=== PATIENT | female | born 1960 | race African-American/Black ===

== ENCOUNTER 2019-03-05 01:11 | Emergency (ER) | payer OTHER ==
[2019-03-05] MEDS ORDERED: Acetaminophen 650 MG Suppository ONE (01:38)
[2019-03-05 01:55] LABS: Bilirubin Negative (Negative); Blood, Urine Negative (Negative); Clarity Turbid (Clear); Glucose, Urine (Dipstick) Normal (Negative); Leukocyte Negative Leu/uL (Negative); Nitrite Negative (Negative); Protein, Urine (Dipstick) 30 mg/dL (Neg-Trace); RBC/HPF 0-3 HPF (0-3); WBC/HPF 0-3 HPF (0-3)
[2019-03-05 01:56] LABS: Bacteria/HPF 1+ HPF (None Seen)
[2019-03-05 02:14] LABS: Actual Bicarbonate (HCO3a) 30.4 mEq/L (22-28); Analyzer IN Cardio ER; Base Excess (BEa) 5.5 mEq/L (-2.0 to +3.0); CO2 Tension 46.5 mmHg (35.0-45.0); Carboxyhemoglobin (COHb) 0.7 gm% (0.0-3.0); Hemoglobin (Hb) 8.9 g/dL (12.0-16.0); Potassium - ABG Lab 3.61 mmol/L (3.70-5.30); pH, Arterial 7.43 (7.35-7.45)
[2019-03-05 02:23] LABS: O2 Tension (PaO2) 38.5 mmHg (> 80.0)
[2019-03-05 02:24] LABS: ALV-art Gradient 74.495 (0-20); Puncture Site LRA
[2019-03-05 02:27] LABS: INR-International Normal Ratio 1.2; PTT 27.9 SEC (22.9-36.1); Prothrombin Time 15.5 SEC (12.0-14.7)
[2019-03-05 02:36] LABS: Band 3 % (5-11); Hemoglobin 9.2 g/dL (12.0-16.0); Hypochromia SLIGHT = 6-15 cells (100X) (0-5/hpf); Lymphocytes 1 % (21-51); MDiff Complete? YES; Mean Corpuscular HGB CONC 31.7 g/dL (32.0-36.0); Mean Corpuscular Hemoglobin 29.4 pg (27.0-31.0); Mean Corpuscular Volume 92.6 fL (78.0-98.0); Mean Platelet Volume 8.7 fL (7.4-10.4); Monocytes 7 % (0-10); Neutrophil 89 % (42-75); Platelet Count 74 thou/uL (130-400); Platelet Morphology Comment Appears Decreased; RBC Distribution Width 19.4 % (11.5-14.5); Red Blood Cell (RBC) Count 3.14 mill/uL (4.20-5.40); White Blood Cell (WBC) Count 21.4 thou/uL (4.8-10.8)
[2019-03-05] MEDS ORDERED: Cefepime 2 GM VIAL ONE (02:39)
[2019-03-05 02:42] LABS: ALT (SGPT) 19 U/L (8-55); AST (SGOT) 61 U/L (5-34); Albumin 2.2 g/dL (3.4-4.8); Alkaline Phosphatase 121 U/L (40-110); Anion Gap 19 mmol/L (10-20); BUN (Urea Nitrogen) 36 mg/dL (9.8-20.1); Bilirubin, Total 1.1 mg/dL (0.2-1.2); Calc. Creatinine Clearance 0 mL/min (70-130); Calcium 6.6 mg/dL (7.8-10.44); Carbon Dioxide 28 mmol/L (23-31); Chloride 88 mmol/L (98-107); Estimated GFR-MDRD 31; Globulin 3.5 g/dL (2.4-3.5); Glucose 93 mg/dL (80-115); Potassium 3.7 mmol/L (3.5-5.1); Protein, Total 5.7 g/dL (6.0-8.3); Sodium 131 mmol/L (136-145)
[2019-03-05 02:43] LABS: Acetaminophen Less than 6.0 mcg/mL (10.0-30.0); Alcohol Less than 10 mg/dL (Less than 10); Salicylate Less than 8.0 mg/dL (15.0-30.0)
[2019-03-05 05:26] LABS: Lactic Acid 3.4 mmol/L (0.5-2.2)
--- NOTE | 2019-03-05 07:11 | RAD ---
RADIOGRAPH CHEST 1 VIEW: DATE: 03/05/2019 HISTORY: 59-year-old female with altered mental status, hypertension, CHF, and CVA. Concern for aspiration. FINDINGS: There is cardiomegaly. There is no evidence of airspace density, pulmonary edema, or pneumothorax. Th e lateral costophrenic angles are not effaced. IMPRESSION: 1) No acute pulmonary findings. 2) cardiomegaly without congestive heart failure.
--- NOTE | 2019-03-05 07:42 | CT ---
PRELIMINARY REPORT/[facility]/AFTER HOURS PROCEDURE CT HEAD WITHOUT INTRAVENOUS CONTRAST: CLINICAL HISTORY: F59 presents to the ED via EMS with c/o mental status changes onset this morning. Per EMS the pt was found this morning by family A&O x 1. Per EMS the family reports she is usually A&O x 4. EMS reports recent diagnosis of CHF and hx of CVA and HTN. TECHNIQUE: Axial computed tomography images of the head/brain without intravenous contrast. COMPARISON: None provided. FINDINGS: BRAIN: No acute intraparenchymal hemorrhage. No mass lesion. No CT evidence for acute territorial inf arct. No midline shift or extra-axial collection. VENTRICLES: No hydrocephalus. ORBITS: The orbits are unremarkable. SINUSES AND MASTOIDS: The paranasal sinuses and mastoid air cells are clear. SOFT TISSUES: No significant facial or scalp soft tissue swelling evident. No radiopaque foreign body is seen. BONES: No acute skull fracture. Hyperostosis frontalis. IMPRESSION: No acute intracranial abnormality. MRI is most sensitive for detection of acute ischemic stroke. ELECTRONICALLY SIGNED BY: Joey Thomas M.D. Mar 05, 2019 3:17:55 AM BROWN S[employer]ER This report is intended for review by the ordering physician only, in accordance of law. If you recei ve this report in error, please call [facility] at [phone]. FINAL REPORT CT BRAIN NONCONTRAST: 03/05/2019 3:04 a.m. HISTORY: A 59-year-old female with altered mental status. FINDINGS: There is no midline shift or any other mass effect. There is no evidence of acute intracranial hemor rhage, large cortical infarct, obstructive hydrocephalus, or extraaxial fluid collection. The calvar ium is intact. This report agrees with the preliminary report by [facility]. IMPRESSION: No acute intracranial findings. jn [] CODE QA POS: OFF
--- NOTE | 2019-03-05 08:00 | ULT ---
PRELIMINARY REPORT/[facility]/AFTER HOURS PROCEDURE US PELVIS, COMPLETE: CLINICAL HISTORY: Pelvic pain, vaginal bleeding HX: cervical CA TECHNIQUE: Transabdominal pelvic ultrasound (complete) with image documentation. COMPARISON: None provided. FINDINGS: ENDOMETRIUM: Nonvisualized. UTERUS/CERVIX: A large heterogeneous midline pelvic mass appears to arise from the uterus and measure s 22.2 x 12.9 x 13.0 cm. RIGHT OVARY: Nonvisualized. LEFT OVARY: Nonvisualized. FREE FLUID: No free fluid. IMPRESSION: Large midline heterogeneous pelvic mass, probably arising from the uterus. Further evaluation with C T versus MRI is advised. ELECTRONICALLY SIGNED BY: Bennie Atkinson MD Mar 05, 2019 2:25:36 AM SUPERVISOR [employer] This report is intended for review by the ordering physician only, in accordance of law. If you recei ve this report in error, please call [facility] at [phone]. FINAL REPORT ULTRASOUND PELVIS DOPPLER DUPLEX: 03/05/2019 2:11 a.m. HISTORY: A 59-year-old female with vaginal bleeding and pelvic pain. TECHNIQUE: A transabdominal transducer was used to evaluate the intrapelvic contents with huffman-scale, color-flow and spectral analysis. FINDINGS: There is a large solid mass in the pelvis, measuring approximately 25 x 13 x 13 cm with heterogeneous echogenicity. It contains numerous small hyperechoic foci throughout, which corresponds to gas, as d emonstrated on subsequent CT. The ovaries are not visualized. There is blood flow within this large m ass. IMPRESSION: 1. Large intrapelvic mass extending into the abdominal cavity, containing numerous foci of gas. 2. This appears to be a very enlarged uterus, perhaps by malignant neoplasm, and suspected to have askew perimposed infection. CODE QA POS: OFF
--- NOTE | 2019-03-05 08:14 | CT ---
PRELIMINARY REPORT/[facility]/AFTER HOURS PROCEDURE CT ABDOMEN AND PELVIS WITH INTRAVENOUS CONTRAST: CLINICAL HISTORY: F59 presents to the ED via EMS with c/o mental status changes onset this morning. Per EMS the pt was found this morning by family A&O x 1. Per EMS the family reports she is usually A&O x 4. EMS reports recent diagnosis of CHF and hx of CVA and HTN. TECHNIQUE: Axial computed tomography images of the abdomen and pelvis with intravenous contrast. CONTRAST: With 60 mL Isovue-370. COMPARISON: Pelvic ultrasound 03/05/2019. FINDINGS: Limited examination due to poor penetration secondary to body habitus. LUNG BASES: No basilar airspace consolidation or pleural effusion. LIVER: Unremarkable. GALLBLADDER AND BILE DUCTS: Unremarkable. No calcified stone. No ductal dilation. PANCREAS: Unremarkable. SPLEEN: Unremarkable. ADRENAL GLANDS: Unremarkable. KIDNEYS, URETERS, AND BLADDER: Mild left hydronephrosis. No nephrolithiasis. No ureteral or bladder calculi. STOMACH AND BOWEL: Right abdominal wall hernia with herniation of small bowel and mesenteric fat. APPENDIX: No CT evidence for appendicitis. PERITONEUM: Possible small free fluid within the left lower quadrant of the abdomen. LYMPH NODES: No lymphadenopathy. PELVIS: 11.7 x 15.1 x 21.9 cm heterogeneous gas containing mass in the lower pelvis posterior to the urinary bladder and anterior to the rectum favored to be within the uterus and cervix. VASCULATURE: No aortic aneurysm. BONES: No fracture or suspicious osseous abnormality. ABDOMINAL WALL AND SOFT TISSUES: Unremarkable. IMPRESSION: 1. A 21.9 cm heterogeneous mass involving the uterus and cervix. This is concerning for malignancy. Given the presence of gas, this raises concern for superimposed infection. 2. Left abdominal ascites suspected. 3. Right lower abdominal hernia containing bowel without evidence of complication. ELECTRONICALLY SIGNED BY: Joey Thomas M.D. Mar 05, 2019 4:04:53 AM ONLINE MARKETING SPECIALIST This report is intended for review by the ordering physician only, in accordance of law. If you recei ve this report in error, please call [facility] at [phone]. FINAL REPORT CT ABDOMEN WITH CONTRAST CT PELVIS WITH CONTRAST: 03/05/2019 3:09 a.m. HISTORY: A 59-year-old female with pelvic pain and vaginal bleeding. COMPARISON: None. TECHNIQUE: IV injection of iodinated contrast media: Isovue-370 60 mL. Oral contrast media: Not administered. FINDINGS: Agree with preliminary report by [facility]. Huge, approximately 22.5 x 10.5 x 14.5 cm mass in the pelvis, extending superiorly into the mid abdom inal cavity, consistent with a pathologically very enlarged uterine body and cervix. There are multif ocal gas pockets within this mass, suggesting infection by a gas-forming organism. A moderate sized p ocket of free fluid abuts the left side of this mass, in the left lower quadrant of the peritoneal ca vity. IMPRESSION: 1. Severe enlargement of the uterus. At least part of this is due to infection. There may or may not also be malignant neoplastic involvement. 2. Cholelithiasis. 3. Mild left hydronephrosis. 4. Right lower quadrant spigelian hernia, containing multiple small bowel loops, without obstruction. VANDANA R CODE QA POS: OFF
== END 2019-03-05 08:57 | disposition short-term general hospital (02) ==
LOC: ERS 01:11
DX: A41.9 Sepsis, unspecified organism (principal); N88.9 Noninflammatory disorder of cervix uteri, unspecified; I95.9 Hypotension, unspecified; I11.0 Hypertensive heart disease with heart failure; I50.9 Heart failure, unspecified; I48.91 Unspecified atrial fibrillation; Z79.899 Other long term (current) drug therapy; Z79.82 Long term (current) use of aspirin
CPT/HCPCS: 36415; 36416; 51701; 70450; 71045; 74177; 76856; 80053; 80307; 81003; 81015; 82553; 82805; 83605; 84484; 85025; 85610; 85730; 87040; 87076; 87077; 87149; 93005; 93976; 96360; 96361; 96365; 99292; J0692; J3370; L8600